=== PATIENT | male | born 1980 | race Caucasian/White ===

== ENCOUNTER 2023-07-11 11:36 | Inpatient (IN) | payer OTHER ==
[~2023-07-11] VITALS: Ht 177.8 cm; Wt 77.7 kg
[~2023-07-11 11:36] MED LIST: CLIN150C2 PO; albumin (human) 25% 100 ML IV solution IV ONE; potassium Cl 2 mEq/ml inj IV ONE
[2023-07-11 11:51] LABS: BASOPHILS # (AUTO) 0.1 X10'3 (0-0.2); BASOPHILS % (AUTO) 0.8 % (0-1); EOSINOPHILS # (AUTO) 0.2 X10'3 (0-0.9); EOSINOPHILS % (AUTO) 1.2 % (0-6); HEMOGLOBIN 15.8 g/dl (14.0-17.9); LYMPHOCYTES # (AUTO) 2.6 X10'3 (1.1-4.8); LYMPHOCYTES % (AUTO) 18.1 % (21-51); MEAN CORPUSCULAR HGB CONC 33.7 g/dL (33.0-36.5); MEAN PLATELET VOLUME 8.8 FL (7.4-10.4); MONOCYTES % (AUTO) 6.7 % (2-12); NEUTROPHILS # (AUTO) 10.7 X10'3 (1.8-7.7); NEUTROPHILS % (AUTO) 73.2 % (42-75); PLATELET COUNT 239 X10'3 (140-440); RED BLOOD COUNT 5.28 X10'6 (4.70-6.10); RED CELL DISTRIBUTION WIDTH 13.7 % (11.5-14.5); WHITE BLOOD COUNT 14.6 X10'3 (4.5-11.0)
[2023-07-11 12:31] LABS: ALANINE AMINOTRANSFERASE 19 U/L (12-78); ALBUMIN 3.7 G/DL (3.4-5.0); ALKALINE PHOSPHATASE 88 IU/L (46-116); ANION GAP 10 (8-16); ASPARTATE AMINO TRANSFERASE 15 U/L (10-37); BILIRUBIN,TOTAL 0.5 MG/DL (0.1-1.0); BLOOD UREA NITROGEN 13 MG/DL (7-18); BUN/CREATININE RATIO 15.5 (10.0-20.0); CALCIUM 9.3 MG/DL (8.5-10.1); CHLORIDE 100 MMOL/L (99-107); CREATININE 0.84 MG/DL (0.60-1.10); POTASSIUM 4.3 MMOL/L (3.5-5.1); SODIUM 140 MMOL/L (135-145); TOTAL CARBON DIOXIDE 29.7 MMOL/L (24-32); TOTAL PROTEIN 7.4 G/DL (6.4-8.2); eCRCL 121 ML/MIN; eGFR > 90 ML/MIN
[2023-07-11 12:37] LABS: PRO BRAIN NATRIURETIC PEPTIDE 1356 PG/ML (0-125)
[2023-07-11 12:39] LABS: GLUCOSE 427 MG/DL (70-104)
[2023-07-11] MEDS: aspirin 81mg tab.chew PO ONE (12:57)
[2023-07-11] MEDS ORDERED: nitroGLYCERIN 0.4mg SUBLingual tab SL PRN ×2 (13:55→19:00)
[2023-07-11] MEDS ORDERED: acetaminophen 325mg tablet PO PRN ×2 (13:55)
[2023-07-11] MEDS ORDERED: magnesium hydroxide 30ml (MOM) UD suspension PO PRN (13:55)
[2023-07-11] MEDS ORDERED: morphine 2 MG/ML inj. syringe IV PRN ×3 (13:55→17:35)
[2023-07-11] MEDS ORDERED: acetaminophen 650mg rectal suppository RC PRN (13:55)
[2023-07-11] MEDS ORDERED: ondansetron 4mg rapidly disintigrating tab PO PRN ×2 (13:55→17:35)
[2023-07-11] MEDS ORDERED: HYDROcodone/acetaminophen 5mg/325mg tablet PO PRN ×2 (13:55→19:00)
[2023-07-11] MEDS ORDERED: magnesium 4gm in 100ml NS 100 ML IV PRN (13:55)
[2023-07-11] MEDS ORDERED: potassium Cl 20 mEq SR tablet PO PRN ×2 (13:55)
[2023-07-11] MEDS ORDERED: magnesium Cl slow-release 64mg tablet PO PRN (13:55)
[2023-07-11] MEDS ORDERED: potassium Cl 40MEQ/1/2NS 520ml 520 ML IV PRN (13:55)
[2023-07-11] MEDS ORDERED: ondansetron/PF 4mg/2ml inj IV PRN ×2 (13:55→19:00)
[2023-07-11] MEDS ORDERED: HYDROcodone/acetaminophen 10/325mg tab PO PRN ×2 (13:55→19:00)
[2023-07-11] MEDS ORDERED: heparin 10,000 units/1 ML INJ IV PRN (13:55)
[2023-07-11] MEDS ORDERED: mag hydrox/Alum hydrox/simeth 30ml oral suspension PO PRN (13:55)
[2023-07-11] MEDS ORDERED: magnesium 2GM in 50ml NS 50 ML IV PRN (13:55)
[2023-07-11] MEDS ORDERED: heparin 25,000 UNIT/250ml bag 250 ML IV PRN (13:55)
[2023-07-11] MEDS: heparin 10,000 units/1 ML INJ IV STA (14:28)
[2023-07-11] MEDS: heparin 25,000 UNIT/250ml bag 250 ML IV SCH (14:30)
[2023-07-11] MEDS ORDERED: DEXTROSE 15 GM of carb/4 tabs (each vial/BOTTLE has 4 tablets) PO PRN ×2 (15:35)
[2023-07-11] MEDS ORDERED: dextrose 50%-water 50ml dispensing syringe IV PRN ×3 (15:35→17:35)
[2023-07-11] MEDS ORDERED: glucagon, human recombinant 1mg kit SUBCUT PRN (15:35)
[2023-07-11] MEDS ORDERED: heparin 1,000unit/ml 10ml vial 10 ML ONE (15:49)
[2023-07-11] MEDS ORDERED: verapamil 2.5 mg/ml inj IV ONE (15:49)
[2023-07-11] MEDS ORDERED: LIDOcaine 1% 30ml preserv. free vial ONE (15:49)
[2023-07-11] MEDS ORDERED: iohexol 350MG/ML 100ml bottle IV ONE (15:49)
[2023-07-11] MEDS ORDERED: nitroGLYCERIN 500mcg/5mL D5W 5 ML IV ONE (15:50)
[2023-07-11] MEDS: MESSAGE TO PHARMACY PO ONE (15:55)
[2023-07-11] MEDS ORDERED: midazolam 1 mg/ML 2ml injection ONE (16:04)
[2023-07-11] MEDS ORDERED: fentaNYL/PF 50MCG/1 ML 2ML syringe ONE (16:04)
[2023-07-11 16:12] LABS: HEMOGLOBIN A1C > 12.0 % (4.5-6.2)
[2023-07-11 16:40] LABS: CHOL/HDL RATIO 4.4 (0.00-4.99); CHOLESTEROL 204 MG/DL (0-200); HDL CHOLESTEROL 46 MG/DL (35-60); LDL CHOLESTEROL 119 MG/DL (50-100); THYROID STIMULATING HORMONE 1.67 ulU/ml (0.34-4.50); TRIGLYCERIDES 250 MG/DL (20-135)
[2023-07-11] MEDS: PERFLUTREN PROTEIN-A MICROSPHR (Optison) 0.22 MG/ML 3ML VIAL IV ONE (17:35)
[2023-07-11] MEDS ORDERED: Insulin Reg/NS 100units/100mL 100 ML IV SCH (17:35)
[2023-07-11] MEDS ORDERED: vancomycin/NS 1 GM ADD-VANTAGE 250 ML IV ONE (17:35)
[2023-07-11] MEDS: MESSAGE TO PHARMACY IJ ONE (17:35)
[2023-07-11] MEDS ORDERED: diphenhydrAMINE 25mg capsule PO PRN (17:35)
[2023-07-11] MEDS ORDERED: insulin glargine (Lantus) pen - multi-dose SQ PRN (17:35)
[2023-07-11] MEDS: MESSAGE TO NURSING PO ONE ×3 (17:35)
[2023-07-11] MEDS ORDERED: ipratropium 0.5 MG/2.5ML nebule IH PRN (17:35)
[2023-07-11] MEDS ORDERED: ROPIVAcaine 0.2%/PF PUMP 545 ML MEDSTERN SCH ×2 (17:35)
[2023-07-11] MEDS ORDERED: gabapentin 400mg capsule PO ONE (17:35)
[2023-07-11] MEDS ORDERED: ALPRAZolam 0.25mg tablet PO PRN (17:35)
[2023-07-11] MEDS: cefazolin/dext.iso 2gm/50ml 50 ML IV ONE (17:35)
[2023-07-11 18:00] VITALS: BP 130/86; PULSE 91; RESP 13; TEMP 97.9; O2SAT 95
[2023-07-11 18:55] LABS: ABG BASE EXCESS -1.2 mmol/L (-2.0-2.0); ABG HCO3 22.9 mmol/L (22.0-26.0); ABG PCO2 (T) 35.8 mmHg (35.0-48.0); ABG PH (T) 7.421 (7.340-7.440); ABG PO2 (T) 74.1 mmHg (75.0-100.0); ALLEN'S TEST Modified; FCOHb 1.4 % (0.0-3.9); FHHb 3.9 % (0.0-5.0); FMetHb 0.3 % (0.0-1.5); FO2Hb 94.4 % (94-97); MODE ROOM AIR; PATIENT TEMPERATURE 36.4
[2023-07-11 19:00] VITALS: BP 116/73; PULSE 90; RESP 14
[2023-07-11] MEDS ORDERED: proCHLORperazine 10 MG/2 ml inj IV PRN (19:00)
[2023-07-11] MEDS ORDERED: OXAZEpam 15mg capsule PO PRN (19:00)
[2023-07-11 20:00] VITALS: BP 122/76; PULSE 94; RESP 13
[2023-07-11] MEDS: mupirocin 2% nasal ointment 1gm UD NS SCH (20:00)
[2023-07-11] MEDS ORDERED: metoprolol tartrate 12.5mg (1/2 tablet) PO SCH (20:00)
[2023-07-11] MEDS: K and/or MAG REPLACEMENT MC SCH (20:00)
[2023-07-11 21:00] VITALS: BP 118/72; PULSE 90; RESP 14
[2023-07-11] MEDS: insulin glargine (Lantus) pen - multi-dose SQ SCH (21:27)
[2023-07-11] MEDS: insulin Lispro (HumaLOG) vial - multi-dose SQ SCH (21:29)
[2023-07-11] MEDS: allopurinol 100mg tablet PO SCH (21:31)
[2023-07-11] MEDS: atorvastatin 10mg tablet PO SCH (21:31)
[2023-07-11] MEDS: docusate sod 100mg capsule PO SCH (21:31)
[2023-07-11] MEDS: famotidine 20mg tablet PO ONE (21:31)
[2023-07-11] MEDS: pantoprazole 40mg Tablet.DR PO SCH (21:31)
[2023-07-11] MEDS: temazepam 15mg capsule PO ONE (21:32)
[2023-07-11 22:00] VITALS: BP 122/82; PULSE 92; RESP 14; TEMP 97.9; O2SAT 96
[2023-07-11 22:09] LABS: HEMATOCRIT 43.3 % (42.0-52.0); HEMOGLOBIN 14.5 g/dl (14.0-17.9); MEAN CORPUSCULAR HEMOGLOBIN 29.7 PG (27.0-31.0); MEAN CORPUSCULAR HGB CONC 33.6 g/dL (33.0-36.5); MEAN CORPUSCULAR VOLUME 88.4 FL (78-98); MEAN PLATELET VOLUME 9.1 FL (7.4-10.4); PLATELET COUNT 214 X10'3 (140-440); RED CELL DISTRIBUTION WIDTH 13.5 % (11.5-14.5); WHITE BLOOD COUNT 15.2 X10'3 (4.5-11.0)
[2023-07-11 22:19] LABS: PROTHROMBIN TIME 10.6 SECONDS (9.0-12.0)
[2023-07-12] VITALS (19 sets, daily range): BP systolic 82–139; BP diastolic 53–76; PULSE 80–96; RESP 8–20; O2SAT 91–100
[2023-07-12 01:40] LABS: HEMATOCRIT 41.7 % (42.0-52.0); HEMOGLOBIN 14.3 g/dl (14.0-17.9); MEAN CORPUSCULAR HEMOGLOBIN 30.2 PG (27.0-31.0); MEAN CORPUSCULAR HGB CONC 34.3 g/dL (33.0-36.5); MEAN CORPUSCULAR VOLUME 87.9 FL (78-98); MEAN PLATELET VOLUME 8.7 FL (7.4-10.4); PLATELET COUNT 196 X10'3 (140-440); RED BLOOD COUNT 4.74 X10'6 (4.70-6.10); RED CELL DISTRIBUTION WIDTH 13.3 % (11.5-14.5); WHITE BLOOD COUNT 11.9 X10'3 (4.5-11.0)
[2023-07-12 01:49] LABS: ALBUMIN 2.8 G/DL (3.4-5.0); ANION GAP 4 (8-16); BLOOD UREA NITROGEN 13 MG/DL (7-18); BUN/CREATININE RATIO 19.1 (10.0-20.0); CHLORIDE 105 MMOL/L (99-107); CREATININE 0.68 MG/DL (0.60-1.10); GLUCOSE 202 MG/DL (70-104); MAGNESIUM 1.8 MG/DL (1.5-2.4); POTASSIUM 3.8 MMOL/L (3.5-5.1); SODIUM 139 MMOL/L (135-145); eCRCL 149 ML/MIN; eGFR > 90 ML/MIN
[2023-07-12] MEDS: heparin 10,000 units/1 ML INJ IV PRN (03:28)
[2023-07-12] MEDS: vancomycin/NS 1 GM ADD-VANTAGE 250 ML IV ONE (05:30)
[2023-07-12] MEDS: cefazolin 2gm/D5W 100mL 100 ML IV ONE (05:30)
[2023-07-12] MEDS ORDERED: Insulin Reg/NS 100units/100mL 100 ML IV SCH (05:30)
[2023-07-12] MEDS: MESSAGE TO NURSING PO ONE ×4 (05:30→10:05)
[2023-07-12] MEDS ORDERED: ipratropium 0.5 MG/2.5ML nebule IH PRN (05:30)
[2023-07-12] MEDS ORDERED: dextrose 50%-water 50ml dispensing syringe IV PRN ×2 (05:30→14:45)
[2023-07-12] MEDS ORDERED: insulin glargine (Lantus) pen - multi-dose SQ PRN ×2 (05:30→14:45)
[2023-07-12] MEDS: ringers solution, lacted 1,000 ML IV ONE (05:30)
[2023-07-12] MEDS ORDERED: LORazepam 2 mg/ml vial ONE (07:16)
[2023-07-12] MEDS: gabapentin 400mg capsule PO ONE (07:27)
[2023-07-12] MEDS: metoprolol tartrate 12.5mg (1/2 tablet) PO SCH (07:28)
[2023-07-12] MEDS ORDERED: aminocaproic acid 250 MG/1 ML inj. ONE (07:43)
[2023-07-12] MEDS: LORazepam 2 mg/ml vial IV ONE (07:44)
[2023-07-12] MEDS ORDERED: SUfentanil 50mcg/ml 1ml amp IV ONE ×2 (07:50)
[2023-07-12] MEDS ORDERED: propofol inj 20 ML IV ONE (07:54)
[2023-07-12] MEDS ORDERED: rocuronium 10mg/ml inj IV ONE ×3 (07:54→14:41)
[2023-07-12] MEDS ORDERED: LIDOcaine 2% (20mg/ml) 5ml vial ONE (07:54)
[2023-07-12] MEDS: aspirin 81mg tab.chew PO SCH (08:30)
[2023-07-12 08:34] LABS: ABG BASE EXCESS 2.1 mmol/L (-2.0-2.0); ABG OXYGEN SATURATION 98.7 % (94-97); ABG PCO2 33.6 mmHg (35.0-48.0); ABG PH 7.489 (7.340-7.440); ABG PO2 147.1 mmHg (75.0-100.0); CL (ABG) 104 mmol/L (99-107); FCOHb 0.3 % (0.0-3.9); FHHb 1.3 % (0.0-5.0); FMetHb 0.3 % (0.0-1.5); FO2Hb 98.1 % (94-97); GLUCOSE (ABG) 236 mg/dl (70-104); K (ABG) 3.8 mmol/L (3.5-5.1); TOTAL HEMOGLOBIN 13.5 G/dl (14.0-17.9)
[2023-07-12] MEDS: BUPIVAcaine/PF 2.5mg/ml (0.25%) 10ml vial ONE (09:37)
[2023-07-12] MEDS: ceFAZolin 1000mg inj ONE (09:37)
[2023-07-12] MEDS: epiNEPHrine 1 mg/ml inj ONE (09:38)
[2023-07-12 10:21] LABS: ABG BASE EXCESS 0.1 mmol/L (-2.0-2.0); ABG HCO3 23.5 mmol/L (22.0-26.0); ABG OXYGEN SATURATION 98.7 % (94-97); ABG PCO2 34.4 mmHg (35.0-48.0); ABG PH 7.453 (7.340-7.440); ABG PO2 145.3 mmHg (75.0-100.0); CL (ABG) 104 mmol/L (99-107); FCOHb 0.2 % (0.0-3.9); FHHb 1.3 % (0.0-5.0); FMetHb 0.3 % (0.0-1.5); FO2Hb 98.2 % (94-97); GLUCOSE (ABG) 114 mg/dl (70-104); IONIZED CA (ABG) 1.13 mmol/L (1.10-1.30); K (ABG) 3.5 mmol/L (3.5-5.1); TOTAL HEMOGLOBIN 13.1 G/dl (14.0-17.9)
[2023-07-12 11:05] LABS: ABG BASE EXCESS 1.3 mmol/L (-2.0-2.0); ABG HCO3 25.9 mmol/L (22.0-26.0); ABG OXYGEN SATURATION 98.5 % (94-97); ABG PCO2 40.6 mmHg (35.0-48.0); ABG PH 7.422 (7.340-7.440); ABG PO2 152.7 mmHg (75.0-100.0); CL (ABG) 104 mmol/L (99-107); FCOHb 0.3 % (0.0-3.9); FHHb 1.5 % (0.0-5.0); FMetHb 0.3 % (0.0-1.5); FO2Hb 97.9 % (94-97); GLUCOSE (ABG) 89 mg/dl (70-104); IONIZED CA (ABG) 1.06 mmol/L (1.10-1.30); K (ABG) 3.9 mmol/L (3.5-5.1); TOTAL HEMOGLOBIN 10.8 G/dl (14.0-17.9)
[2023-07-12 11:34] LABS: ACT @ 1.70 U 254 SEC (193-297); ACT @ 2.84 U 364 SEC (260-420); BASELINE ACT 138 SEC (101-148); PATIENT WEIGHT 75.0k KG
[2023-07-12 11:38] LABS: ABG BASE EXCESS VENOUS -0.1 mmol/L (-2.0 - 2.0); ABG HCO3 VENOUS 25.3 mmol/L (21.0-28.0); ABG OXYGEN SATURATION VENOUS 81.3 % (75 - 99 %); ABG PH (VENOUS) 7.377 (7.310-7.450); ABG PO2 VENOUS 44.2 mmHg (25.0-35.0); CL (ABG) 104 mmol/L (99-107); FCOHb VENOUS 0.3 %; FHHb VENOUS 18.6 %; FMetHb VENOUS 0.3 % (0.0 - 0.5); FO2Hb VENOUS 80.8 %; GLUCOSE (ABG) 106 mg/dl (70-104); K (ABG) 3.5 mmol/L (3.5-5.1); TOTAL HEMOGLOBIN 11.2 G/dl (14.0-17.9)
[2023-07-12 12:09] LABS: ABG BASE EXCESS -1.7 mmol/L (-2.0-2.0); ABG HCO3 23.3 mmol/L (22.0-26.0); ABG OXYGEN SATURATION 98.1 % (94-97); ABG PCO2 40.8 mmHg (35.0-48.0); ABG PH 7.375 (7.340-7.440); ABG PO2 130.9 mmHg (75.0-100.0); CL (ABG) 105 mmol/L (99-107); FCOHb 0.3 % (0.0-3.9); FHHb 1.9 % (0.0-5.0); FMetHb 0.3 % (0.0-1.5); FO2Hb 97.5 % (94-97); GLUCOSE (ABG) 112 mg/dl (70-104); IONIZED CA (ABG) 1.11 mmol/L (1.10-1.30); K (ABG) 4.1 mmol/L (3.5-5.1); TOTAL HEMOGLOBIN 11.2 G/dl (14.0-17.9)
[2023-07-12 12:41] LABS: ABG BASE EXCESS -2.2 mmol/L (-2.0-2.0); ABG HCO3 22.7 mmol/L (22.0-26.0); ABG OXYGEN SATURATION 98.9 % (94-97); ABG PCO2 39.7 mmHg (35.0-48.0); ABG PH 7.376 (7.340-7.440); ABG PO2 199.6 mmHg (75.0-100.0); CL (ABG) 105 mmol/L (99-107); FCOHb 0.3 % (0.0-3.9); FHHb 1.1 % (0.0-5.0); FMetHb 0.3 % (0.0-1.5); FO2Hb 98.3 % (94-97); GLUCOSE (ABG) 119 mg/dl (70-104); IONIZED CA (ABG) 1.11 mmol/L (1.10-1.30); K (ABG) 3.9 mmol/L (3.5-5.1)
[2023-07-12 13:50] LABS: ABG HCO3 25.4 mmol/L (22.0-26.0); ABG OXYGEN SATURATION 98.9 % (94-97); ABG PCO2 39.3 mmHg (35.0-48.0); ABG PH 7.428 (7.340-7.440); CL (ABG) 107 mmol/L (99-107); FCOHb 0.3 % (0.0-3.9); FHHb 1.1 % (0.0-5.0); FMetHb 0.3 % (0.0-1.5); FO2Hb 98.3 % (94-97); GLUCOSE (ABG) 112 mg/dl (70-104); IONIZED CA (ABG) 1.19 mmol/L (1.10-1.30); K (ABG) 3.7 mmol/L (3.5-5.1); TOTAL HEMOGLOBIN 10.7 G/dl (14.0-17.9)
[2023-07-12] MEDS ORDERED: albumin (Human) 5% 250ml 250 ML IV ONE ×2 (14:34)
[2023-07-12] MEDS ORDERED: potassium Cl 20 mEq SR tablet PO PRN (14:45)
[2023-07-12] MEDS ORDERED: nitroGLYCERIN-Tridil 50MG/D5W 250 ML IV PRN ×2 (14:45→15:22)
[2023-07-12] MEDS ORDERED: magnesium 2GM in 50ml NS 50 ML IV PRN (14:45)
[2023-07-12] MEDS ORDERED: metoclopramide 5 mg/ml inj IV PRN (14:45)
[2023-07-12] MEDS ORDERED: NORepinephrine 8mg/ 250ml NS 250 ML IV PRN (14:45)
[2023-07-12] MEDS ORDERED: Neutra Phos packet PO PRN (14:45)
[2023-07-12] MEDS ORDERED: niCARDipine-NS 40mg/200ml IVPB 200 ML IV PRN (14:45)
[2023-07-12] MEDS ORDERED: potassium Cl 40MEQ/1/2NS 520ml 520 ML IV PRN (14:45)
[2023-07-12] MEDS ORDERED: sodium phosphate inj. 30 MMOL in dextrose 5%-water 250 ML IV PRN (14:45)
[2023-07-12] MEDS ORDERED: bisacodyl 10mg suppository rectal RC PRN (14:45)
[2023-07-12] MEDS ORDERED: morphine 4 MG/ML inj SYRINge IV PRN (14:45)
[2023-07-12] MEDS ORDERED: sodium phosphate inj. 15 MMOL in dextrose 5%-water 250 ML IV PRN (14:45)
[2023-07-12] MEDS ORDERED: magnesium 4gm in 100ml NS 100 ML IV PRN (14:45)
[2023-07-12] MEDS ORDERED: potassium Cl 40MEQ/270ML bag 250 ML IV PRN (14:45)
[2023-07-12] MEDS ORDERED: normal saline 250ml IV soln 250 ML IV PRN (14:45)
[2023-07-12] MEDS ORDERED: potassium CL 10mEq/100ml bag 100 ML IV PRN (14:45)
[2023-07-12] MEDS ORDERED: mineral oil 133ml enema RC PRN (14:45)
[2023-07-12] MEDS ORDERED: acetaminophen 325mg tablet PO PRN (14:45)
[2023-07-12] MEDS ORDERED: albuterol 2.5 MG/3 ML nebule NEB PRN (14:55)
[2023-07-12] MEDS: Insulin Reg/NS 100units/100mL 100 ML IV SCH (15:00)
[2023-07-12 15:08] LABS: ABG BASE EXCESS -1.6 mmol/L (-2.0-2.0); ABG HCO3 22.5 mmol/L (22.0-26.0); ABG OXYGEN SATURATION 99.3 % (94-97); ABG PCO2 (T) 36.4 mmHg (35.0-48.0); ABG PH (T) 7.411 (7.340-7.440); ABG PO2 (T) 327.7 mmHg (75.0-100.0); FCOHb 0.3 % (0.0-3.9); FHHb 0.7 % (0.0-5.0); FMetHb 0.3 % (0.0-1.5); FO2Hb 98.7 % (94-97); MODE VENT - SIMV; PATIENT TEMPERATURE 37.1; RESPIRATORY RATE 12 b/min; TIDAL VOLUME 600 mL; TOTAL HEMOGLOBIN 12.3 G/dl (14.0-17.9)
[2023-07-12 15:17] LABS: BASOPHILS % (AUTO) 0.1 % (0-1); EOSINOPHILS # (AUTO) 0.1 X10'3 (0-0.9); EOSINOPHILS % (AUTO) 0.3 % (0-6); HEMATOCRIT 33.4 % (42.0-52.0); HEMOGLOBIN 11.2 g/dl (14.0-17.9); LYMPHOCYTES % (AUTO) 5.6 % (21-51); MEAN CORPUSCULAR HEMOGLOBIN 29.8 PG (27.0-31.0); MEAN CORPUSCULAR HGB CONC 33.6 g/dL (33.0-36.5); MEAN CORPUSCULAR VOLUME 88.5 FL (78-98); NEUTROPHILS # (AUTO) 15.1 X10'3 (1.8-7.7); PLATELET COUNT 111 X10'3 (140-440); RED BLOOD COUNT 3.78 X10'6 (4.70-6.10); WHITE BLOOD COUNT 17.1 X10'3 (4.5-11.0)
[2023-07-12 15:22] LABS: APTT 28 SECONDS (22-32); FIBRINOGEN 218 MG/DL (177-424); INR 1.1 INR; PROTHROMBIN TIME 11.9 SECONDS (9.0-12.0)
[2023-07-12] MEDS: sodium chloride 0.45% 1,000 ML IV SCH (15:31)
[2023-07-12] MEDS: diltiazem-NS 100mg/100ml 100 ML IV SCH (15:32)
[2023-07-12 15:33] LABS: ALANINE AMINOTRANSFERASE 13 U/L (12-78); ALBUMIN 2.4 G/DL (3.4-5.0); ALBUMIN/GLOBULIN RATIO 1.3 (1.1-1.5); ALKALINE PHOSPHATASE 39 IU/L (46-116); ANION GAP 11 (8-16); ASPARTATE AMINO TRANSFERASE 34 U/L (10-37); BILIRUBIN,TOTAL 0.5 MG/DL (0.1-1.0); BLOOD UREA NITROGEN 13 MG/DL (7-18); BUN/CREATININE RATIO 17.1 (10.0-20.0); CALCIUM 7.4 MG/DL (8.5-10.1); CHLORIDE 113 MMOL/L (99-107); CREATININE 0.76 MG/DL (0.60-1.10); GLUCOSE 78 MG/DL (70-104); MAGNESIUM 2.9 MG/DL (1.5-2.4); PHOSPHORUS 2.8 MG/DL (2.3-4.5); POTASSIUM 3.9 MMOL/L (3.5-5.1); SODIUM 147 MMOL/L (135-145); TOTAL PROTEIN 4.2 G/DL (6.4-8.2); eCRCL 133 ML/MIN; eGFR > 90 ML/MIN
[2023-07-12] MEDS: potassium Cl 20mEq/100mL bag 100 ML IV PRN (15:41)
[2023-07-12] MEDS: albumin (Human) 5% 250ml 250 ML IV PRN (16:00)
[2023-07-12] MEDS: ceFAZolin/D5W- 1GM premix 50 ML IV SCH (16:20)
[2023-07-12] MEDS ORDERED: MED LIST UNOBTAINABL (17:30)
[2023-07-12] MEDS: albumin (Human) 5% 250ml 250 ML IV ONE ×2 (17:45→17:49)
[2023-07-12] MEDS ORDERED: NORepinephrine 8mg/ 250ml NS 250 ML IV SCH (18:25)
[2023-07-12] MEDS: sennosides/docusate sodium tablet PO SCH (19:28)
[2023-07-12] MEDS: vancomycin/NS 1 GM ADD-VANTAGE 250 ML IV SCH (19:28)
[2023-07-12] MEDS: HYDROcodone/acetaminophen 10/325mg tab PO PRN (19:29)
[2023-07-12] MEDS: ROPIVAcaine 0.2%/PF PUMP 545 ML MEDSTERN SCH ×2 (19:39→19:40)
[2023-07-12] MEDS: mupirocin 2% ointment 22GM NS SCH (20:00)
[2023-07-12 20:45] LABS: OXYGEN SATURATION (MIXED VEN) 62.2 % (60-80); PO2 MIXED VENOUS (TEMP COR) 31.8 mmHg (35-46)
[2023-07-12] MEDS: gabapentin 300mg capsule PO SCH (20:47)
[2023-07-12] MEDS: atorvastatin 10mg tablet PO SCH (20:47)
[2023-07-12] MEDS: furosemide 20 MG/2 ML vial IV ONE (20:47)
[2023-07-12 21:14] LABS: BASOPHILS % (AUTO) 0.1 % (0-1); EOSINOPHILS % (AUTO) 0 % (0-6); HEMATOCRIT 33.2 % (42.0-52.0); HEMOGLOBIN 11.2 g/dl (14.0-17.9); LYMPHOCYTES # (AUTO) 0.8 X10'3 (1.1-4.8); LYMPHOCYTES % (AUTO) 5.1 % (21-51); MEAN CORPUSCULAR HEMOGLOBIN 29.7 PG (27.0-31.0); MEAN CORPUSCULAR HGB CONC 33.6 g/dL (33.0-36.5); MEAN CORPUSCULAR VOLUME 88.4 FL (78-98); MEAN PLATELET VOLUME 9.1 FL (7.4-10.4); MONOCYTES # (AUTO) 0.8 X10'3 (0-0.9); MONOCYTES % (AUTO) 5.1 % (2-12); NEUTROPHILS # (AUTO) 14.1 X10'3 (1.8-7.7); NEUTROPHILS % (AUTO) 89.7 % (42-75); PLATELET COUNT 121 X10'3 (140-440); RED BLOOD COUNT 3.76 X10'6 (4.70-6.10); RED CELL DISTRIBUTION WIDTH 13.4 % (11.5-14.5); WHITE BLOOD COUNT 15.7 X10'3 (4.5-11.0)
[2023-07-12 21:16] LABS: ALBUMIN 3.5 G/DL (3.4-5.0); ANION GAP 8 (8-16); BLOOD UREA NITROGEN 16 MG/DL (7-18); BUN/CREATININE RATIO 20.3 (10.0-20.0); CALCIUM 7.3 MG/DL (8.5-10.1); CHLORIDE 113 MMOL/L (99-107); CREATININE 0.79 MG/DL (0.60-1.10); GLUCOSE 128 MG/DL (70-104); MAGNESIUM 2.4 MG/DL (1.5-2.4); PHOSPHORUS 2.6 MG/DL (2.3-4.5); POTASSIUM 4.6 MMOL/L (3.5-5.1); SODIUM 144 MMOL/L (135-145); TOTAL CARBON DIOXIDE 22.9 MMOL/L (24-32); eCRCL 132 ML/MIN; eGFR > 90 ML/MIN
[2023-07-13] VITALS (31 sets, daily range): BP systolic 102–152; BP diastolic 57–88; PULSE 75–109; RESP 8–26; O2SAT 92–99
[2023-07-13 02:50] LABS: BASOPHILS % (AUTO) 0.1 % (0-1); EOSINOPHILS % (AUTO) 0 % (0-6); HEMATOCRIT 32.9 % (42.0-52.0); HEMOGLOBIN 11.1 g/dl (14.0-17.9); LYMPHOCYTES % (AUTO) 7.1 % (21-51); MEAN CORPUSCULAR HEMOGLOBIN 29.9 PG (27.0-31.0); MEAN CORPUSCULAR HGB CONC 33.7 g/dL (33.0-36.5); MEAN CORPUSCULAR VOLUME 88.8 FL (78-98); MEAN PLATELET VOLUME 9.8 FL (7.4-10.4); MONOCYTES # (AUTO) 1.1 X10'3 (0-0.9); NEUTROPHILS # (AUTO) 11.8 X10'3 (1.8-7.7); NEUTROPHILS % (AUTO) 84.8 % (42-75); PLATELET COUNT 120 X10'3 (140-440); RED CELL DISTRIBUTION WIDTH 13.3 % (11.5-14.5); WHITE BLOOD COUNT 13.9 X10'3 (4.5-11.0)
[2023-07-13 02:58] LABS: APTT 28 SECONDS (22-32); INR 1.1 INR; PROTHROMBIN TIME 11.4 SECONDS (9.0-12.0)
[2023-07-13 03:01] LABS: ALANINE AMINOTRANSFERASE 24 U/L (12-78); ALBUMIN 3.2 G/DL (3.4-5.0); ALBUMIN/GLOBULIN RATIO 1.7 (1.1-1.5); ALKALINE PHOSPHATASE 42 IU/L (46-116); ANION GAP 9 (8-16); ASPARTATE AMINO TRANSFERASE 51 U/L (10-37); BLOOD UREA NITROGEN 17 MG/DL (7-18); BUN/CREATININE RATIO 24.3 (10.0-20.0); CALCIUM 7.6 MG/DL (8.5-10.1); CHLORIDE 113 MMOL/L (99-107); GLUCOSE 90 MG/DL (70-104); MAGNESIUM 2.7 MG/DL (1.5-2.4); PHOSPHORUS 3.7 MG/DL (2.3-4.5); POTASSIUM 4.2 MMOL/L (3.5-5.1); SODIUM 147 MMOL/L (135-145); TOTAL PROTEIN 5.1 G/DL (6.4-8.2); eCRCL 148 ML/MIN; eGFR > 90 ML/MIN
[2023-07-13 07:12] LABS: ABG BASE EXCESS -6.8 mmol/L (-2.0-2.0); ABG HCO3 15.4 mmol/L (22.0-26.0); ABG OXYGEN SATURATION 99.3 % (94-97); ABG PCO2 (T) 23.9 mmHg (35.0-48.0); ABG PH (T) 7.431 (7.340-7.440); ABG PO2 (T) 163.5 mmHg (75.0-100.0); FCOHb 0.1 % (0.0-3.9); FHHb 0.7 % (0.0-5.0); FMetHb 0.3 % (0.0-1.5); FO2Hb 98.9 % (94-97); MODE VENT - CPAP; PATIENT TEMPERATURE 37.8; PEEP 5 cm H2O; TOTAL HEMOGLOBIN 12.5 G/dl (14.0-17.9)
[2023-07-13] MEDS: metoprolol tartrate 12.5mg (1/2 tablet) PO SCH (08:33)
[2023-07-13] MEDS: aspirin 81mg tab.chew PO SCH (08:34)
[2023-07-13] MEDS ORDERED: ipratropium 0.5 MG/2.5ML nebule IH PRN (09:00)
[2023-07-13] MEDS: metoprolol succinate 25mg (24-HOUR) SR. Tablet PO SCH (09:02)
[2023-07-13] MEDS: pantoprazole 40mg Tablet.DR PO SCH (09:46)
[2023-07-13] MEDS: clopidogrel 75mg tablet PO SCH (09:47)
[2023-07-13] MEDS: folic acid/vitamin B complex w/vitamin C 0.8mg tablet PO SCH (09:47)
[2023-07-13] MEDS: furosemide 40mg tablet PO SCH (09:47)
[2023-07-13] MEDS: potassium Cl 20 mEq SR tablet PO SCH (09:47)
[2023-07-13] MEDS ORDERED: NO HOME MEDS (10:32)
[2023-07-13] MEDS ORDERED: glucagon, human recombinant 1mg kit SUBCUT PRN (11:40)
[2023-07-13] MEDS ORDERED: dextrose 50%-water 50ml dispensing syringe IV PRN ×2 (11:40)
[2023-07-13] MEDS ORDERED: DEXTROSE 15 GM of carb/4 tabs (each vial/BOTTLE has 4 tablets) PO PRN ×2 (11:40)
[2023-07-13] MEDS: metoclopramide 10mg tablet PO SCH (13:19)
[2023-07-13] MEDS: insulin Lispro (HumaLOG) vial - multi-dose SQ SCH (13:24)
[2023-07-13] MEDS: morphine 2 MG/ML inj. syringe IV PRN (20:15)
[2023-07-13] MEDS: enoxaparin 30mg/0.3ml syringe SUBCUT SCH (20:16)
[2023-07-13] MEDS: insulin glargine (Lantus) pen - multi-dose SQ SCH (20:44)
[2023-07-14] VITALS (14 sets, daily range): BP systolic 100–132; BP diastolic 64–80; PULSE 95–102; RESP 12–23; TEMP 97.8–99; O2SAT 90–98
[2023-07-14 03:18] LABS: BASOPHILS % (AUTO) 0.1 % (0-1); EOSINOPHILS % (AUTO) 0.1 % (0-6); HEMATOCRIT 33.4 % (42.0-52.0); HEMOGLOBIN 11.1 g/dl (14.0-17.9); LYMPHOCYTES # (AUTO) 2.2 X10'3 (1.1-4.8); LYMPHOCYTES % (AUTO) 14.6 % (21-51); MEAN CORPUSCULAR HEMOGLOBIN 29.8 PG (27.0-31.0); MEAN CORPUSCULAR HGB CONC 33.3 g/dL (33.0-36.5); MEAN CORPUSCULAR VOLUME 89.4 FL (78-98); MEAN PLATELET VOLUME 9.7 FL (7.4-10.4); MONOCYTES # (AUTO) 1.6 X10'3 (0-0.9); MONOCYTES % (AUTO) 10.5 % (2-12); NEUTROPHILS # (AUTO) 11.5 X10'3 (1.8-7.7); NEUTROPHILS % (AUTO) 74.7 % (42-75); PLATELET COUNT 123 X10'3 (140-440); RED BLOOD COUNT 3.74 X10'6 (4.70-6.10); RED CELL DISTRIBUTION WIDTH 13.8 % (11.5-14.5); WHITE BLOOD COUNT 15.4 X10'3 (4.5-11.0)
[2023-07-14 03:29] LABS: ALBUMIN 2.9 G/DL (3.4-5.0); ANION GAP 10 (8-16); BLOOD UREA NITROGEN 16 MG/DL (7-18); CALCIUM 7.9 MG/DL (8.5-10.1); CHLORIDE 105 MMOL/L (99-107); GLUCOSE 202 MG/DL (70-104); MAGNESIUM 1.7 MG/DL (1.5-2.4); PHOSPHORUS 2.7 MG/DL (2.3-4.5); POTASSIUM 4.4 MMOL/L (3.5-5.1); SODIUM 139 MMOL/L (135-145); TOTAL CARBON DIOXIDE 24.5 MMOL/L (24-32); eCRCL 127 ML/MIN; eGFR > 90 ML/MIN
[2023-07-14] MEDS: HYDROcodone/acetaminophen 10/325mg tab PO PRN (03:46)
[2023-07-14] MEDS ORDERED: pantoprazole 40mg Tablet.DR PO SCH (07:30)
[2023-07-14] MEDS: diltiazem CD 120mg capsule (once-daily) PO SCH (07:56)
[2023-07-14] MEDS ORDERED: potassium Cl 40MEQ/1/2NS 520ml 520 ML IV PRN (08:15)
[2023-07-14] MEDS ORDERED: potassium CL 10mEq/100ml bag 100 ML IV PRN (08:15)
[2023-07-14] MEDS ORDERED: potassium Cl 20mEq/100mL bag 100 ML IV PRN (08:15)
[2023-07-14] MEDS ORDERED: magnesium 2GM in 50ml NS 50 ML IV PRN (08:15)
[2023-07-14] MEDS ORDERED: potassium Cl 20 mEq SR tablet PO PRN ×2 (08:15)
[2023-07-14] MEDS ORDERED: magnesium 4gm in 100ml NS 100 ML IV PRN (08:15)
[2023-07-14] MEDS ORDERED: potassium Cl 40MEQ/270ML bag 250 ML IV PRN (08:15)
[2023-07-14] MEDS: magnesium Cl slow-release 64mg tablet PO SCH (20:56)
[2023-07-14] MEDS: magnesium hydroxide 30ml (MOM) UD suspension PO PRN (21:00)
[2023-07-15] VITALS (9 sets, daily range): BP systolic 109–133; BP diastolic 72–80; PULSE 84–97; RESP 13–22; TEMP 96.8–98; O2SAT 91–96
[2023-07-15 07:18] LABS: BASOPHILS % (AUTO) 0.3 % (0-1); EOSINOPHILS % (AUTO) 0.2 % (0-6); HEMATOCRIT 31.1 % (42.0-52.0); HEMOGLOBIN 10.5 g/dl (14.0-17.9); LYMPHOCYTES # (AUTO) 1.9 X10'3 (1.1-4.8); LYMPHOCYTES % (AUTO) 12.1 % (21-51); MEAN CORPUSCULAR HEMOGLOBIN 29.8 PG (27.0-31.0); MEAN CORPUSCULAR HGB CONC 33.7 g/dL (33.0-36.5); MEAN CORPUSCULAR VOLUME 88.6 FL (78-98); MEAN PLATELET VOLUME 9.7 FL (7.4-10.4); MONOCYTES # (AUTO) 1.9 X10'3 (0-0.9); MONOCYTES % (AUTO) 11.8 % (2-12); NEUTROPHILS % (AUTO) 75.6 % (42-75); PLATELET COUNT 128 X10'3 (140-440); RED BLOOD COUNT 3.51 X10'6 (4.70-6.10); RED CELL DISTRIBUTION WIDTH 13.4 % (11.5-14.5); WHITE BLOOD COUNT 15.8 X10'3 (4.5-11.0)
[2023-07-15 07:28] LABS: ALBUMIN 2.6 G/DL (3.4-5.0); ANION GAP 7 (8-16); BLOOD UREA NITROGEN 17 MG/DL (7-18); BUN/CREATININE RATIO 25.8 (10.0-20.0); CALCIUM 7.9 MG/DL (8.5-10.1); CHLORIDE 102 MMOL/L (99-107); CREATININE 0.66 MG/DL (0.60-1.10); GLUCOSE 166 MG/DL (70-104); MAGNESIUM 1.7 MG/DL (1.5-2.4); POTASSIUM 4.2 MMOL/L (3.5-5.1); SODIUM 137 MMOL/L (135-145); TOTAL CARBON DIOXIDE 28.4 MMOL/L (24-32); eCRCL 154 ML/MIN; eGFR > 90 ML/MIN
[2023-07-15] MEDS ORDERED: ATOR10TA PO (10:43)
[2023-07-15] MEDS ORDERED: CLOP75TA34 PO (10:43)
[2023-07-15] MEDS ORDERED: ASPI81TA53 PO (10:44)
[2023-07-15] MEDS ORDERED: METO-395 PO (10:44)
[2023-07-15] MEDS ORDERED: INSU100V11 SQ (10:44)
[2023-07-15] MEDS ORDERED: LANTUS SQ (10:44)
[2023-07-15] MEDS ORDERED: CARCD120C PO (10:44)
[2023-07-15] MEDS ORDERED: HYDR-3972 PO (10:44)
[2023-07-15] MEDS ORDERED: HYDR-3973 PO (11:44)
[2023-07-15] MEDS: ondansetron/PF 4mg/2ml inj IV PRN (13:37)
[2023-07-15] MEDS: acetaminophen 325mg tablet PO PRN (13:37)
[2023-07-15] MEDS: lactose-reduced food (Ensure Enlive) - 237ml bottle PO SCH (17:30)
[2023-07-16] MEDS: docusate sod 250mg capsule PO SCH
[2023-07-16] MEDS: sennosides/docusate sodium tablet PO SCH
[2023-07-16] MEDS: temazepam 15mg capsule PO PRN
[2023-07-16] MEDS: polyethylene glycol 3350 17gm powd pack PO SCH (00:01)
[2023-07-16 02:00] VITALS: BP 139/86; PULSE 91; RESP 18; TEMP 97.9; O2SAT 95
[2023-07-16 06:00] VITALS: BP 142/84; PULSE 89; RESP 21; TEMP 98; O2SAT 94
[2023-07-16 06:26] LABS: BASOPHILS % (AUTO) 0.3 % (0-1); EOSINOPHILS # (AUTO) 0.1 X10'3 (0-0.9); EOSINOPHILS % (AUTO) 0.6 % (0-6); HEMATOCRIT 32.4 % (42.0-52.0); LYMPHOCYTES # (AUTO) 1.5 X10'3 (1.1-4.8); LYMPHOCYTES % (AUTO) 15.2 % (21-51); MEAN CORPUSCULAR HEMOGLOBIN 30.1 PG (27.0-31.0); MEAN CORPUSCULAR HGB CONC 33.9 g/dL (33.0-36.5); MEAN CORPUSCULAR VOLUME 88.9 FL (78-98); MEAN PLATELET VOLUME 9.5 FL (7.4-10.4); MONOCYTES % (AUTO) 10.2 % (2-12); NEUTROPHILS # (AUTO) 7.2 X10'3 (1.8-7.7); NEUTROPHILS % (AUTO) 73.7 % (42-75); PLATELET COUNT 165 X10'3 (140-440); RED BLOOD COUNT 3.64 X10'6 (4.70-6.10); RED CELL DISTRIBUTION WIDTH 13.4 % (11.5-14.5); WHITE BLOOD COUNT 9.7 X10'3 (4.5-11.0)
[2023-07-16 06:37] LABS: ALBUMIN 2.5 G/DL (3.4-5.0); ANION GAP 6 (8-16); BLOOD UREA NITROGEN 15 MG/DL (7-18); BUN/CREATININE RATIO 23.4 (10.0-20.0); CALCIUM 8.7 MG/DL (8.5-10.1); CHLORIDE 101 MMOL/L (99-107); CREATININE 0.64 MG/DL (0.60-1.10); GLUCOSE 175 MG/DL (70-104); MAGNESIUM 1.7 MG/DL (1.5-2.4); SODIUM 139 MMOL/L (135-145); TOTAL CARBON DIOXIDE 31.7 MMOL/L (24-32); eCRCL 158 ML/MIN; eGFR > 90 ML/MIN
[2023-07-16] MEDS: atorvastatin 20mg tablet PO SCH (07:23)
[2023-07-16 08:00] VITALS: RESP 21; O2SAT 94
== END 2023-07-16 15:48 | disposition home or self-care (01) | DRG 234 ==
LOC: ER 11:37 → ED HOLD 14:06 → EDBEDREQ 15:44 → PCU 3S 17:11 → CICU 2S 07-12 08:30 → PCU 3S 07-14 12:27
PROVIDERS: ADMIT Family Medicine; ATTEND Family Medicine
PROC: 4A023N7 Measurement of Cardiac Sampling and Pressure, Left Heart, Percutaneous Approach (ICD-10-PCS; principal; 2023-07-11)
PROC: B2111ZZ Fluoroscopy of Multiple Coronary Arteries using Low Osmolar Contrast (ICD-10-PCS; 2023-07-11)
PROC: 02100Z9 Bypass Coronary Artery, One Artery from Left Internal Mammary, Open Approach (ICD-10-PCS; 2023-07-12)
PROC: 06BQ4ZZ Excision of Left Saphenous Vein, Percutaneous Endoscopic Approach (ICD-10-PCS; 2023-07-12)
PROC: 03BC4ZZ Excision of Left Radial Artery, Percutaneous Endoscopic Approach (ICD-10-PCS; 2023-07-12)
PROC: 021109W Bypass Coronary Artery, Two Arteries from Aorta with Autologous Venous Tissue, Open Approach (ICD-10-PCS; 2023-07-12)
PROC: 02110AW Bypass Coronary Artery, Two Arteries from Aorta with Autologous Arterial Tissue, Open Approach (ICD-10-PCS; 2023-07-12)
PROC: 0JH80WZ Insertion of Totally Implantable Vascular Access Device into Abdomen Subcutaneous Tissue and Fascia, Open Approach (ICD-10-PCS; 2023-07-12)
PROC: 5A1221Z Performance of Cardiac Output, Continuous (ICD-10-PCS; 2023-07-12)
PROC: B24BZZ4 Ultrasonography of Heart with Aorta, Transesophageal (ICD-10-PCS; 2023-07-12)
PROC: 5A2204Z Restoration of Cardiac Rhythm, Single (ICD-10-PCS; 2023-07-12)
PROC: 3E0T3BZ Introduction of Anesthetic Agent into Peripheral Nerves and Plexi, Percutaneous Approach (ICD-10-PCS; 2023-07-12)
DX: I21.4 Non-ST elevation (NSTEMI) myocardial infarction (principal); I42.9 Cardiomyopathy, unspecified; I47.20 Ventricular tachycardia, unspecified; E11.43 Type 2 diabetes mellitus with diabetic autonomic (poly)neuropathy; I25.110 Atherosclerotic heart disease of native coronary artery with unstable angina pectoris; E87.5 Hyperkalemia; J43.9 Emphysema, unspecified; E11.65 Type 2 diabetes mellitus with hyperglycemia; E78.2 Mixed hyperlipidemia; I34.0 Nonrheumatic mitral (valve) insufficiency; F17.210 Nicotine dependence, cigarettes, uncomplicated; K31.84 Gastroparesis; Z91.199 Patient's noncompliance with other medical treatment and regimen due to unspecified reason; Z83.3 Family history of diabetes mellitus; Z73.1 Type A behavior pattern; Z82.49 Family history of ischemic heart disease and other diseases of the circulatory system; Z71.6 Tobacco abuse counseling
CPT/HCPCS: 0232T; 93306; 93312; 93325; 93458; 96374; 99291; Z7506; Z7508; 36415; 36600; 71045; 71250; 80048; 80053; 80061; 82330; 82435; 82803; 82810; 82947; 82948; 83036; 83735; 83880; 84100; 84132; 84295; 84443; 84484; 85018; 85025; 85027; 85347; 85384; 85610; 85730; 86885; 86900; 86901; 86920; 87081; 93005; 93880; 93931; 93970; 94002; 94010; 94760; 99152; A4615; A4618; A6223; A6258; A6449; A7000; A7048; C1751; C1894; G0378; J0171; J0690; J1644; J1650; J1815; J1940; J2060; J2150; J2250; J2270; J2405; J2704; J2720; J2795; J2930; J3010; J3370; J3480; J3490; J7030; J7040; J7050; J7120; P9045; P9047; Q9967